=== PATIENT | male | born 1960 | race Caucasian/White ===

== ENCOUNTER 2018-03-27 01:50 | Emergency (ER) | payer BC, OTHER ==
[2018-03-27] MEDS ORDERED: Albuterol 0.083% 2.5 MG/3 ML Neb Soln NEB ONE (02:05)
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
== END 2018-03-27 02:41 | disposition home or self-care (01) ==
LOC: JP.ED 01:50
DX: J40 Bronchitis, not specified as acute or chronic (principal); J98.01 Acute bronchospasm; Z79.899 Other long term (current) drug therapy
CPT/HCPCS: 36415; 80053; 85025; 94640; 99285-25

== ENCOUNTER 2018-03-27 10:39 | Emergency (ER) | payer BC, OTHER ==
[2018-03-27] MEDS ORDERED: Sodium Chloride 0.9% 10 ML Syringe FLUSH PRN (11:11)
[2018-03-27] MEDS ORDERED: Albuterol/Ipratropium 3.0-0.5 MG/3 ML Neb Soln NEB ONE (11:15)
--- NOTE | 2018-03-27 11:17 | EDM.PDOC ---
ED HPI GENERAL MEDICAL PROBLEM - General Chief Complaint: Respiratory Problem Stated Complaint: SOB Time Seen by Provider: 03/27/18 11:05 Source of Information: Reports: Patient, Old Records History Limitations: Reports: No Limitations - History of Present Illness INITIAL COMMENTS - FREE TEXT/NARRATIVE: 58 yo male with cold sx's for a couple days returns for the 2nd visit in about 9 hrs for SOB. Has no hx of lung dz. Denies smoking history. No hx of asthma and uses no regular respiratory meds. Got albuterol and azithromycin when he left here early this morning. He last used the albuterol about 30 minutes ago with some relief. Has a pHx of a leaking heart valve and his sx's then were similar to today. Is visiting from [place], [place]. No fever or chest pain or LE edema. Onset: Gradual Onset Date: 03/25/18 Duration: Day(s):, Getting Worse Location: Reports: Chest Quality: Reports: Other (no pain) Severity: Moderate Improves with: Reports: Rest Worsens with: Reports: Movement Context: Reports: Other (cold sx's, some benefit with albuterol) Associated Symptoms: Reports: Shortness of Breath, Other (rhinorrhea). 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: Other (see below) (albuterol) - Related Data Allergies Allergy/AdvReac Type Severity Reaction Status Date / Time No Known Allergies Allergy Verified 03/27/18 11:27 Home Meds: Home Meds Albuterol [Proventil Neb Soln] 2.5 mg NEB Q4H PRN #60 neb 03/27/18 [Rx] Albuterol/Ipratropium [DuoNeb 3.0-0.5 MG/3 ML] 3 ml NEB Q6H PRN #30 neb [Rx] Aspirin [Halfprin] 1 tab PO DAILY 03/27/18 [History] Metoprolol Succinate [Toprol XL] 1 tab PO DAILY 03/27/18 [History] Rosuvastatin [Crestor] 1 tab PO DAILY 03/27/18 [History] predniSONE 20 mg PO BID #12 tab 03/27/18 [Rx] Past Medical History HEENT History: Reports: Impaired Vision Cardiovascular History: Reports: Heart Valve Replacement, High Cholesterol, Hypertension Genitourinary History: Reports: Renal Calculus - Infectious Disease History Infectious Disease History: Reports: Chicken Pox, Measles - Past Surgical History Cardiovascular Surgical History: Reports: Valve Replacement GI Surgical History: Reports: Hernia Repair/Other Neurological Surgical History: Reports: Laminectomy Social & Family History - Caffeine Use Caffeine Use: Reports: Coffee ED ROS GENERAL - Review of Systems Review Of Systems: See Below Constitutional: Reports: Malaise HEENT: Reports: Rhinitis Respiratory: Reports: Shortness of Breath. Denies: Pleuritic Chest Pain, Sputum , Hemoptysis Cardiovascular: Reports: No Symptoms GI/Abdominal: Reports: No Symptoms : Reports: No Symptoms Musculoskeletal: Reports: No Symptoms Skin: Reports: No Symptoms Neurological: Reports: No Symptoms ED EXAM, GENERAL - Physical Exam Exam: See Below Exam Limited By: No Limitations General Appearance: Alert, WD/WN, Mild Distress Eye Exam: Bilateral Eye: Normal Inspection Ears: Normal External Exam, Normal Canal, Hearing Grossly Normal, Normal TMs Ear Exam: Bilateral Ear: Auricle Normal, Canal Normal, TM normal Nose: Normal Inspection, Normal Mucosa, No Blood Throat/Mouth: Normal Inspection, Normal Lips, Normal Oropharynx, Normal Voice, No Airway Compromise Head: Atraumatic, Normocephalic Neck: Normal Inspection, Supple, Non-Tender Respiratory/Chest: No Respiratory Distress, Lungs Clear, No Accessory Muscle Use , Decreased Breath Sounds. No: Normal Breath Sounds Cardiovascular: Tachycardia GI/Abdominal: Normal Bowel Sounds, Soft, Non-Tender, No Distention Back Exam: Normal Inspection. No: CVA Tenderness (R), CVA Tenderness (L) Extremities: Normal Inspection, Normal Range of Motion, Non-Tender, No Pedal Edema Neurological: Alert, Oriented, CN II-XII Intact, Normal Cognition, No Motor/ Sensory Deficits Psychiatric: Normal Affect, Normal Mood Skin Exam: Warm, Dry, Intact, Normal Color, No Rash Lymphatic: No Adenopathy Course - Vital Signs Text/Narrative:: Feeling much better after neb tx. Last Recorded V/S: Last Vital Signs Temp 36.8 C 03/27/18 11:26 Pulse 112 H 03/27/18 11:26 Resp 20 03/27/18 11:26 BP 124/77 03/27/18 11:26 Pulse Ox 93 L 03/27/18 11:26 - Orders/Labs/Meds Orders: Active Orders 24 hr Category Date Time Status Cardiac Monitoring [RC] .As Directed Care 03/27/18 11:03 Active RT Aerosol Therapy [RC] ASDIRECTED Care 03/27/18 11:15 Active RT Peak Flow Measurement [RC] ASDIRECTED Care 03/27/18 11:15 Active Sodium Chloride 0.9% [Saline Flush] Med 03/27/18 11:11 Active 10 ml FLUSH ASDIRECTED PRN Saline Lock Insert [OM.PC] Routine Oth 03/27/18 11:11 Ordered Medication Orders Sodium Chloride (Saline Flush) 10 ml FLUSH ASDIRECTED PRN PRN Reason: Keep Vein Open Labs: Laboratory Tests 03/27/18 03/27/18 03/27/18 Range/Units 11:20 11:20 11:20 D-Dimer, Quantitative < 100 (0.0-400.0) ng/mL Troponin I < 0.017 (0.000-0.056) ng/mL C-Reactive Protein 6.15 H (0.0-0.3) mg/dL NT-Pro-B Natriuret Pep 862 H (5-125) pg/mL Meds: Medications Generic Name Dose Route Start Last Admin Trade Name Freq PRN Reason Stop Dose Admin Sodium Chloride 10 ml 03/27/18 11:11 Saline Flush FLUSH ASDIRECTED PRN Keep Vein Open Discontinued Medications Generic Name Dose Route Start Last Admin Trade Name Freq PRN Reason Stop Dose Admin Albuterol/Ipratropium 3 ml 03/27/18 11:15 03/27/18 11:49 Duoneb 3.0-0.5 Mg/3 Ml NEB 03/27/18 11:16 3 ml ONETIME ONE Administration Prednisone 40 mg 03/27/18 12:13 Prednisone PO 03/27/18 12:14 NOW STA - Radiology Interpretation Free Text/Narrative:: CXR-negative, reviewed with radiology. Departure - Departure Time of Disposition: 12:30 Disposition: Home, Self-Care 01 Condition: Fair Clinical Impression: Bronchitis Exacerbation of asthma Qualifiers: Asthma severity: moderate Asthma persistence: unspecified Qualified Code(s): J45.901 - Unspecified asthma with (acute) exacerbation - Discharge Information Prescriptions: Albuterol [Proventil Neb Soln] 2.5 mg NEB Q4H PRN #60 neb PRN Reason: Wheezing Albuterol/Ipratropium [DuoNeb 3.0-0.5 MG/3 ML] 3 ml NEB Q6H PRN #30 neb PRN Reason: Wheezing predniSONE 20 mg PO BID #12 tab Referrals: PCP,None [Primary Care Provider] - Forms: ED Department Discharge - My Orders Last 24 Hours: My Active Orders 03/27/18 11:03 Cardiac Monitoring [RC] .As Directed 03/27/18 11:11 Sodium Chloride 0.9% [Saline Flush] 10 ml FLUSH ASDIRECTED PRN Saline Lock Insert [OM.PC] Routine 03/27/18 11:15 RT Aerosol Therapy [RC] ASDIRECTED RT Peak Flow Measurement [RC] ASDIRECTED - Assessment/Plan Last 24 Hours: My Active Orders 03/27/18 11:03 Cardiac Monitoring [RC] .As Directed 03/27/18 11:11 Sodium Chloride 0.9% [Saline Flush] 10 ml FLUSH ASDIRECTED PRN Saline Lock Insert [OM.PC] Routine 03/27/18 11:15 RT Aerosol Therapy [RC] ASDIRECTED RT Peak Flow Measurement [RC] ASDIRECTED
[2018-03-27] MEDS ORDERED: predniSONE 20 MG Tab PO STA (12:13)
--- NOTE | 2018-03-27 12:14 | CR ---
CHEST: 2 view CLINICAL HISTORY:Shortness of breath COMPARISON:None FINDINGS: Lungs are mildly hyperaerated. Heart size pulmonary vascularity and hilar structures are n ormal. There has been previous sternotomy. No infiltrate effusion or pneumothorax is seen. IMPRESSION: Mild hyperaeration No acute cardiopulmonary process
== END 2018-03-27 12:32 | disposition home or self-care (01) ==
LOC: JP.ED 10:39
DX: J45.901 Unspecified asthma with (acute) exacerbation (principal); I10 Essential (primary) hypertension
CPT/HCPCS: 36415; 71046; 83880; 84484; 85379; 86140; 94640; 99285; A9270; J7620